=== PATIENT | female | born 1945 | race African-American/Black ===

== ENCOUNTER 2017-02-22 17:28 | Emergency (ER) | payer BC, OTHER ==
[~2017-02-22] VITALS: Ht 160 cm; Wt 81.6 kg
[2017-02-22 17:29] VITALS: BP_SYST 131
[2017-02-22 19:04] LABS: BASOPHILS % (AUTO) 0.5 % (0.0-2.0); EOSINOPHILS # (AUTO) 0.1 K/uL (0.0-0.4); EOSINOPHILS % (AUTO) 1.4 % (0.0-4.0); HEMOGLOBIN 12.3 g/dL (12.0-16.0); LYMPHOCYTES # (AUTO) 2.8 K/uL (1.0-5.5); LYMPHOCYTES % (AUTO) 45.5 % (20.5-51.5); MEAN CORPUSCULAR HEMOGLOBIN 31 pg (27-31); MEAN CORPUSCULAR HGB CONC 34 % (32-36); MEAN CORPUSCULAR VOLUME 89 fL (79.0-98.0); MONOCYTES # (AUTO) 0.4 K/uL (0.0-1.0); MONOCYTES % (AUTO) 7.2 % (1.7-9.3); NEUTROPHILS # (AUTO) 2.8 K/uL (1.8-7.7); NEUTROPHILS % (AUTO) 45.4 % (40.0-70.0); PLATELET COUNT (AUTO) 277 K/uL (130-430); RED BLOOD CELL COUNT(AUTO) 4.03 MIL/uL (4.2-6.2); RED CELL DISTRIBUTION WIDTH 13.9 % (9.0-15.0); WHITE BLOOD COUNT (AUTO) 6.1 K/uL (4.8-10.8)
[2017-02-22 19:14] LABS: CALCIUM 8.8 mg/dL (8.4-11.0); CREATININE 1.12 mg/dL (0.55-1.30); POTASSIUM 3.8 mmol/L (3.5-5.1)
[2017-02-22 19:18] LABS: ALBUMIN 3.5 g/dL (3.4-4.8); TOTAL BILIRUBIN 0.2 mg/dL (0.0-1.0); TOTAL PROTEIN, SERUM 7.5 g/dL (6.4-8.3)
[2017-02-22 19:21] LABS: BILIRUBIN,URINE NEGATIVE (NEGATIVE); BLOOD, URINE NEGATIVE (NEGATIVE); CLARITY/URINE CLEAR (CLEAR); COLOR,URINE YELLOW (YELLOW); GLUCOSE,URINE 3+ (NEGATIVE); KETONES,URINE NEGATIVE (NEGATIVE); LEUKOCYTE ESTERASE ,URINE NEGATIVE (NEGATIVE); NITRITE, URINE NEGATIVE (NEGATIVE); PH,URINE 5.5 (5.0-8.0); PROTEIN URINE NEGATIVE (NEGATIVE); UROBILINOGEN,URINE 0.2 (0.2-1.0)
[2017-02-22 19:29] LABS: BACTERIA,URINE RARE /HPF (None Seen); MUCUS,URINE None Seen /LPF (None Seen); RBC,URINE NONE SEEN /HPF (0-3)
[2017-02-22] MEDS: NACL 0.9% 1,000 ML IV ONE (20:40)
[2017-02-22] MEDS ORDERED: LORazepam 2 MG/ML VIAL (FOR ER USE) ONE (20:43)
[2017-02-22] MEDS: LORazepam 2 MG/ML VIAL IVP ONE (20:51)
[2017-02-23 00:35] VITALS: BP_SYST 124
== END 2017-02-23 00:35 | disposition home or self-care (01) ==
LOC: SED 17:28
DX: E86.0 Dehydration (principal); F41.9 Anxiety disorder, unspecified; R41.82 Altered mental status, unspecified
CPT/HCPCS: 36415; 70450; 71010; 80053; 81000; 82962; 83605; 83690; 84484; 85025; 87040; 93005; 96360; 99285; G0482; J2060; J7030

== ENCOUNTER 2020-05-20 22:59 | Emergency (ER) | payer OTHER, BC ==
[~2020-05-20] VITALS: Ht 160 cm; Wt 81.6 kg
[2020-05-20 23:00] VITALS: BP_SYST 154
[2020-05-21 00:57] LABS: BASOPHILS % (AUTO) 0.2 % (0.0-2.0); EOSINOPHILS # (AUTO) 0.1 K/uL (0.0-0.4); EOSINOPHILS % (AUTO) 1.2 % (0.0-4.0); HEMATOCRIT 36.8 % (36-48); HEMOGLOBIN 12.1 g/dL (12.0-16.0); LYMPHOCYTES # (AUTO) 2.8 K/uL (1.0-5.5); LYMPHOCYTES % (AUTO) 44.1 % (20.5-51.5); MEAN CORPUSCULAR HEMOGLOBIN 29 pg (27-31); MEAN CORPUSCULAR HGB CONC 33 % (32-36); MEAN CORPUSCULAR VOLUME 89 fL (79.0-98.0); MONOCYTES # (AUTO) 0.5 K/uL (0.0-1.0); MONOCYTES % (AUTO) 7.8 % (1.7-9.3); NEUTROPHILS # (AUTO) 2.9 K/uL (1.8-7.7); NEUTROPHILS % (AUTO) 46.7 % (40.0-70.0); PLATELET COUNT (AUTO) 272 K/uL (130-430); RED BLOOD CELL COUNT(AUTO) 4.14 MIL/uL (4.2-6.2); RED CELL DISTRIBUTION WIDTH 14.1 % (9.0-15.0); WHITE BLOOD COUNT (AUTO) 6.3 K/uL (4.8-10.8)
[2020-05-21 01:09] LABS: ANION GAP 10 (5-15); CALCIUM 9.4 mg/dL (8.4-11.0); CHLORIDE 97 mmol/L (98-107); POTASSIUM 4.1 mmol/L (3.5-5.1); SODIUM SERUM 131 mmol/L (136-145); UREA NITROGEN, BLOOD 21 mg/dL (8-21)
[2020-05-21 01:17] LABS: ALANINE AMINOTRANSFERASE 32 U/L (12-78); ALBUMIN 3.1 g/dL (3.4-4.8); ASPARTATE AMINOTRANSFERASE 13 U/L (10-37); TOTAL BILIRUBIN 0.3 mg/dL (0.0-1.0)
[2020-05-21 01:20] LABS: GLUCOSE 446 mg/dL (70-99)
[2020-05-21] MEDS ORDERED: INSULIN REGULAR, HUMAN 10 UNITS/0.1 ML INJ IVP ONE (01:30)
[2020-05-21] MEDS: NACL 0.9% 1,000 ML IV ONE ×2 (01:46→02:40)
[2020-05-21 02:13] LABS: BILIRUBIN,URINE NEGATIVE (NEGATIVE); BLOOD, URINE NEGATIVE (NEGATIVE); CLARITY/URINE CLEAR (CLEAR); COLOR,URINE YELLOW (YELLOW); GLUCOSE,URINE 3+ (NEGATIVE); KETONES,URINE NEGATIVE (NEGATIVE); LEUKOCYTE ESTERASE ,URINE NEGATIVE (NEGATIVE); NITRITE, URINE NEGATIVE (NEGATIVE); PH,URINE 5.5 (5.0-8.0); PROTEIN URINE NEGATIVE (NEGATIVE); UROBILINOGEN,URINE 0.2 (0.2-1.0)
[2020-05-21] MEDS ORDERED: INSULIN REGULAR, HUMAN 10 UNITS/0.1 ML INJ SUBCUT ONE (02:45)
[2020-05-21 05:13] VITALS: BP_SYST 139
== END 2020-05-21 05:13 | disposition home or self-care (01) ==
LOC: SED 22:59
DX: I11.0 Hypertensive heart disease with heart failure (principal); I50.9 Heart failure, unspecified; R42 Dizziness and giddiness; R73.9 Hyperglycemia, unspecified
CPT/HCPCS: 36415; 36600; 70450; 71045; 80053; 81003; 82009; 82803; 82962; 83880; 84484; 85025; 93005; 96372; 99285; J7030; J1815

== ENCOUNTER 2021-05-13 19:45 | Emergency (ER) | payer OTHER, BC ==
[~2021-05-13] VITALS: Ht 160 cm; Wt 86.2 kg
[2021-05-13 19:50] VITALS: BP_SYST 137
[2021-05-13] MEDS ORDERED: ACETAMINOPHEN 500 MG TABLET PO ONE (23:15)
[2021-05-13 23:41] LABS: BASOPHILS % (AUTO) 0.3 % (0.0-2.0); EOSINOPHILS # (AUTO) 0.1 K/uL (0.0-0.4); EOSINOPHILS % (AUTO) 1.7 % (0.0-4.0); HEMATOCRIT 34.6 % (36-48); HEMOGLOBIN 11.8 g/dL (12.0-16.0); LYMPHOCYTES # (AUTO) 2.9 K/uL (1.0-5.5); LYMPHOCYTES % (AUTO) 45.8 % (20.5-51.5); MEAN CORPUSCULAR HEMOGLOBIN 30 pg (27-31); MEAN CORPUSCULAR HGB CONC 34 % (32-36); MEAN CORPUSCULAR VOLUME 89 fL (79.0-98.0); MONOCYTES # (AUTO) 0.5 K/uL (0.0-1.0); MONOCYTES % (AUTO) 8.6 % (1.7-9.3); NEUTROPHILS # (AUTO) 2.7 K/uL (1.8-7.7); NEUTROPHILS % (AUTO) 43.6 % (40.0-70.0); PLATELET COUNT (AUTO) 274 K/uL (130-430); RED BLOOD CELL COUNT(AUTO) 3.91 MIL/uL (4.2-6.2); RED CELL DISTRIBUTION WIDTH 14.2 % (9.0-15.0); WHITE BLOOD COUNT (AUTO) 6.3 K/uL (4.8-10.8)
[2021-05-13 23:48] LABS: ANION GAP 8 (5-15); CALCIUM 8.8 mg/dL (8.4-11.0); CHLORIDE 109 mmol/L (98-107); CREATININE 1.01 mg/dL (0.55-1.30); GLUCOSE 185 mg/dL (70-99); POTASSIUM 3.9 mmol/L (3.5-5.1); SODIUM SERUM 144 mmol/L (136-145); UREA NITROGEN, BLOOD 18 mg/dL (8-21)
[2021-05-14] MEDS ORDERED: NAPR-686 PO (00:22)
[2021-05-14] MEDS ORDERED: ACET12.55 PO ×2 (00:22)
[2021-05-14 01:00] VITALS: BP_SYST 126
[2021-05-14] MEDS ORDERED: ACET1TAB23 PO (13:01)
== END 2021-05-14 01:00 | disposition home or self-care (01) ==
LOC: SED 19:45
DX: S06.0X0A Concussion without loss of consciousness, initial encounter (principal); G44.309 Post-traumatic headache, unspecified, not intractable; I11.0 Hypertensive heart disease with heart failure; I50.9 Heart failure, unspecified; Z79.899 Other long term (current) drug therapy; V49.69XA Unspecified car occupant injured in collision with other motor vehicles in traffic accident, initial encounter; Y93.89 Activity, other specified; Y92.89 Other specified places as the place of occurrence of the external cause; Y99.8 Other external cause status
CPT/HCPCS: 36415; 70450-TC; 76376; 80048; 85025; 99284

== ENCOUNTER 2021-08-10 04:42 | Inpatient (IN) | payer BC, OTHER, SELFPAY ==
[~2021-08-10] VITALS: Ht 160 cm; Wt 85.7 kg
[2021-08-10] VITALS (7 sets, daily range): BP systolic 101–156
[~2021-08-10 04:42] MED LIST: ACET1TAB23 PO; NAPR-686 PO
--- NOTE | 2021-08-10 04:55 | NUR ---
Placed in room 5 . Placed on monitoring manager, blood pressure machine and pulse oximeter. To gown for exam. Side rails up. Report given to Alok MAIER.
--- NOTE | 2021-08-10 05:03 | NUR ---
PT ARRIVED TO ER WITH COMPLAINTS OF DIZZYNESS AND FEELING OF PASSING OUT SINCE 08/09/21 MORNING. PT STATES SHE HAS BEEN PROGRESSIVELY GETTING WORSE. -N/V. A&OX4. PT IS LAYING DOWN IN BED RESTING NOW
--- NOTE | 2021-08-10 05:25 | NUR ---
Patient transported to radiology via GURNEY, accompanied by PHIL.
--- NOTE | 2021-08-10 06:28 | NUR ---
ATTEMPTED TO START IV ON PT, PT WAS GETTING REAL ANXIOUS. AWAITING BLOOD DRAW BY SYSTEMS ARCHITECT
[2021-08-10 07:00] LABS: BILIRUBIN,URINE NEGATIVE (NEGATIVE); BLOOD, URINE NEGATIVE (NEGATIVE); CLARITY/URINE CLEAR (CLEAR); COLOR,URINE YELLOW (YELLOW); GLUCOSE,URINE 2+ (NEGATIVE); KETONES,URINE NEGATIVE (NEGATIVE); LEUKOCYTE ESTERASE ,URINE NEGATIVE (NEGATIVE); NITRITE, URINE NEGATIVE (NEGATIVE); PROTEIN URINE NEGATIVE (NEGATIVE); UROBILINOGEN,URINE 0.2 (0.2-1.0)
--- NOTE | 2021-08-10 07:06 | NUR ---
care transferred to bobby guillaume
[2021-08-10 07:12] LABS: BASOPHILS % (AUTO) 0.3 % (0.0-2.0); EOSINOPHILS # (AUTO) 0.1 K/uL (0.0-0.4); EOSINOPHILS % (AUTO) 1.2 % (0.0-4.0); HEMATOCRIT 37.8 % (36-48); HEMOGLOBIN 12.6 g/dL (12.0-16.0); LYMPHOCYTES # (AUTO) 2.5 K/uL (1.0-5.5); LYMPHOCYTES % (AUTO) 43.4 % (20.5-51.5); MEAN CORPUSCULAR HEMOGLOBIN 29 pg (27-31); MEAN CORPUSCULAR HGB CONC 33 % (32-36); MEAN CORPUSCULAR VOLUME 88 fL (79.0-98.0); MONOCYTES # (AUTO) 0.4 K/uL (0.0-1.0); MONOCYTES % (AUTO) 7.5 % (1.7-9.3); NEUTROPHILS # (AUTO) 2.8 K/uL (1.8-7.7); NEUTROPHILS % (AUTO) 47.6 % (40.0-70.0); PLATELET COUNT (AUTO) 272 K/uL (130-430); RED BLOOD CELL COUNT(AUTO) 4.29 MIL/uL (4.2-6.2); RED CELL DISTRIBUTION WIDTH 14.2 % (9.0-15.0); WHITE BLOOD COUNT (AUTO) 5.8 K/uL (4.8-10.8)
--- NOTE | 2021-08-10 07:20 | NUR ---
RECEIVED AND IN ROOM, PT CALM, ALERT, RESP UNLABORED, DENIES CP/SOB. SKIN WARM AND DRY.
[2021-08-10 07:26] LABS: ANION GAP 7 (5-15); CALCIUM 9.3 mg/dL (8.4-11.0); CHLORIDE 103 mmol/L (98-107); CREATININE 0.87 mg/dL (0.55-1.30); GLUCOSE 253 mg/dL (70-99); POTASSIUM 3.6 mmol/L (3.5-5.1); SODIUM SERUM 138 mmol/L (136-145); UREA NITROGEN, BLOOD 11 mg/dL (8-21)
[2021-08-10 07:29] LABS: INR 1.1 (0.8-1.2); PROTHROMBIN TIME 11.3 SECS (9.5-12.5)
[2021-08-10 07:32] LABS: ALANINE AMINOTRANSFERASE 29 U/L (12-78); ALBUMIN 3.5 g/dL (3.4-4.8); ASPARTATE AMINOTRANSFERASE 15 U/L (10-37); TOTAL BILIRUBIN 0.6 mg/dL (0.0-1.0)
--- NOTE | 2021-08-10 07:35 | NUR ---
VSS, SR ON MONITOR NO ECTOPY,
--- NOTE | 2021-08-10 07:43 | NUR ---
DR CABRERA IN TO ASSESS
--- NOTE | 2021-08-10 07:55 | NUR ---
ADMIT UNDER JANDIAL DX SYNCOPE, TELE OBS
[2021-08-10 08:09] LABS: BACTERIA,URINE RARE /HPF (None Seen); MUCUS,URINE 1+ /LPF (None Seen); RBC,URINE 0-3 /HPF (0-3); WBC,URINE 0-3 /HPF (0-3)
[2021-08-10] MEDS ORDERED: LOSA25TA3 PO (08:10)
[2021-08-10] MEDS ORDERED: NIFE-55 PO (08:10)
[2021-08-10] MEDS ORDERED: GLIP10TA11 PO (08:10)
--- NOTE | 2021-08-10 09:14 | NUR ---
SITTING UP EATING BREAKFAST
--- NOTE | 2021-08-10 09:50 | NUR ---
2D ECHO COMPLETED, DR IRBY IN TO ASSESS
--- NOTE | 2021-08-10 10:11 | NUR ---
DR BOOKER AT BEDSIDE
--- NOTE | 2021-08-10 10:11 | NUR ---
Patient will be admitted to care of ADE. Admitted to TELE unit. Will go to room 102. Belongings list completed. Complete and up to date summary report printed. SBAR report to be given at bedside with opportunity for questions.
--- NOTE | 2021-08-10 10:30 | NUR ---
PATIENT ADMITTED TO TELEMETRY, CAME FROM ER IN [facility], RECEIVED REPORT AT BEDSIDE, PATIENT IV INTACT PATENT IN LEFT HAND 22G, PATIENT IS AMBULATORY WITH STAND BY ASSIST, VOICES SHE FEELS LIGHT HEADED, NO KNOWN ALLERGIES, STATES SHE IS B[employer] SO DOES NOT WANT TO RECEIVE BLOOD AND PROVIDED ADVANCE DIRECTIVE AND COPY WAS PLACED IN CHART, ON TELE NSR, SKIN INTACT, BELONGINGS LIST FILLED OUT, BED IN LOWEST LOCKED POSITION, CALL LIGHT WITHIN REACH, SAFETY MEASURES IN PLACE, WILL CONTINUE TO MONITOR.
--- NOTE | 2021-08-10 10:37 | NUR ---
CONSULT NEUROLOGY NEAR SYNCOPE MEDARDO YAO SENT A TEXT MESSAGE TO DR BRICE
[2021-08-10] MEDS ORDERED: DEXTROSE 50% JECT 50 ML DISP.SYRIN IVP PRN (10:45)
[2021-08-10] MEDS: INSULIN REGULAR, HUMAN 100 UNITS/ML, 10 ML VIAL (humuLIN R) SUBCUT PRN ×3 (12:33→20:48)
[2021-08-10] MEDS ORDERED: XALEYE OP (17:11)
--- NOTE | 2021-08-10 17:14 | NUR ---
CALLED DR HAYES FOR DR BOOKER TO NOTIFY THAT PATIENT REPORTED SHE USES LATANAPROST 0.005%, 1 DROP BOTHEYES EVERY NIGHT FOR GLAUCOMA, AWAITING CALL BACK.
--- NOTE | 2021-08-10 21:00 | NUR ---
Patient denies any pain with intermittent dizziness safety/fall precaution instructed
--- NOTE | 2021-08-11 02:33 | NUR ---
PATIENT RESTING: Patient resting quietly. No acute distress noted. telemetry NSR
[2021-08-11 07:49] LABS: ALANINE AMINOTRANSFERASE 30 U/L (12-78); ALBUMIN 3.3 g/dL (3.4-4.8); ANION GAP 7 (5-15); ASPARTATE AMINOTRANSFERASE 16 U/L (10-37); CHLORIDE 105 mmol/L (98-107); CREATININE 0.95 mg/dL (0.55-1.30); GLUCOSE 177 mg/dL (70-99); POTASSIUM 3.8 mmol/L (3.5-5.1); SODIUM SERUM 140 mmol/L (136-145); THYROID STIMULATING HORMONE 1.07 uIu/mL (0.36-3.74); TOTAL BILIRUBIN 0.6 mg/dL (0.0-1.0); UREA NITROGEN, BLOOD 17 mg/dL (8-21)
[2021-08-11 08:00] VITALS: BP_SYST 133
[2021-08-11] MEDS: LOSARTAN POTASSIUM 25 MG TABLET PO SCH (08:20)
[2021-08-11 09:19] LABS: CHOLESTEROL 177 mg/dL (<200); HDL CHOLESTEROL 42 mg/dL (>55); LDL CHOLESTEROL 115 mg/dL (<100); TRIGLYCERIDES 123 mg/dL (30-150)
[2021-08-11 12:00] VITALS: BP_SYST 140
[2021-08-11] MEDS: INSULIN REGULAR, HUMAN 100 UNITS/ML, 10 ML VIAL (humuLIN R) SUBCUT PRN ×3 (12:05→22:16)
--- NOTE | 2021-08-11 13:26 | NUR ---
SPOKE WITH MRI, TOLD THAT WHEN HE WENT TO THE ROOM TO GIVE THE PATIENT HER MRI SHE WAS HAVING HER EEG PERFORMED AND IT WOULD NOT BE FINISHED FOR 45 MINUTES SO MRI OUT OF SLOTS TO TAKE HER TODAY AND STATED THAT SHE CAN NOT BE TAKEN UNTIL FIRST THING TOMORROW MORNING, CALLED AND NOTIFIED DR BOOKER, HE STATED THERE IS NOTHING WE CAN DO THUS WE WILL HAVE HER PERFORM THE MRI TOMORROW MORNING THEN DISCUSS POSSIBLE DISCHARGE.
--- NOTE | 2021-08-11 14:00 | NUR ---
CALLED FROM MRI, THEY STATED THAT THEY WENT IN TO [employer] PATIENT FOR MRI BUT PATIENT WAS HAVING THE EEG PERFORMED AND IT WOULD TAKE 45 MINUTES, MRI STATED THEY DO NOT HAVE ANY MORE TIME SLOTS FOR THE PATIENT TODAY SO THEY HAD TO SCHEDULE HER FOR FIRST THING TOMORROW MORNING, NOTIFIED DR BOOKER, ADE STATED THAT THERE IS NOTHING WE CAN DO AND SO WE WILL HAVE THE MRI DONE IN THE MORNING. NO NEW ORDERS. Addendum: 08/11/21 at 1552 by Sweta Pang RN DISREGARD, REPEAT NOTE.
[2021-08-11 16:00] VITALS: BP_SYST 145
--- NOTE | 2021-08-11 17:10 | NUR ---
Dietitian Recommendations * CCHO low carb-45 gm, cardiac diet * Nutrition Consult for DM/heart-healthy MNT prior to D/C [facility]E [facility] Please refer to Nutrition Assessment for details. Addendum: 08/11/21 at [address] Amended: Links added.
--- NOTE | 2021-08-11 18:44 | NUR ---
PATIENT IN BED, NO S/S OF DISTRESS, MRI SCHEDULED FOR AM, NO MAJOR CHANGES DURING SHIFT, NO NEEDS AT THIS TIME, WILL ENDORSE CONTINUATION OF CARE TO CHEF DE FROID
[2021-08-11 19:40] VITALS: BP_SYST 151
[2021-08-11] MEDS ORDERED: LATANOPROST 2.5 ML DROPS (XALATAN) BOTH EYES SCH (21:00)
--- NOTE | 2021-08-11 21:07 | NUR ---
Ambulate with steady gait no dizziness no headache.
[2021-08-12 00:24] VITALS: BP_SYST 146
--- NOTE | 2021-08-12 00:25 | NUR ---
Awake watching TV denies any pain
--- NOTE | 2021-08-12 03:02 | NUR ---
PATIENT RESTING: Patient resting quietly. No acute distress noted. Telemetry NSR
[2021-08-12] MEDS: INSULIN REGULAR, HUMAN 100 UNITS/ML, 10 ML VIAL (humuLIN R) SUBCUT PRN (06:11)
[2021-08-12] MEDS: LOSARTAN POTASSIUM 25 MG TABLET PO SCH (10:43)
[2021-08-12 12:09] VITALS: BP_SYST 131
== END 2021-08-12 14:10 | disposition home health service (06) | DRG 149 ==
LOC: SED 04:42 → STU 08:04 → OBSVTOIN 13:50
PROVIDERS: ADMIT Internal Medicine Hospice and Palliative Medicine; ATTEND Internal Medicine Hospice and Palliative Medicine
PROC: 4A10X4Z Monitoring of Central Nervous Electrical Activity, External Approach (ICD-10-PCS; principal; 2021-08-11)
DX: R42 Dizziness and giddiness (principal); E78.5 Hyperlipidemia, unspecified; E11.9 Type 2 diabetes mellitus without complications; I70.90 Unspecified atherosclerosis; I11.0 Hypertensive heart disease with heart failure; I50.9 Heart failure, unspecified; Z20.822 Contact with and (suspected) exposure to COVID-19; Z79.82 Long term (current) use of aspirin; Z79.84 Long term (current) use of oral hypoglycemic drugs; Z79.899 Other long term (current) drug therapy; Z82.5 Family history of asthma and other chronic lower respiratory diseases; Z83.3 Family history of diabetes mellitus; Z87.891 Personal history of nicotine dependence; Z90.49 Acquired absence of other specified parts of digestive tract; Z98.891 History of uterine scar from previous surgery
CPT/HCPCS: 36415; 70450-TC; 70551; 71045; 76376; 80053; 80061; 81000; 82962; 83880; 84443; 84484; 85025; 85610-TC; 85730-TC; 93005; 93306; 93880; 95816; 99285; G0378

== ENCOUNTER 2022-11-04 03:08 | Emergency (ER) | payer BC, OTHER ==
[~2022-11-04] VITALS: Ht 160 cm; Wt 83.9 kg
[~2022-11-04 03:08] MED LIST changes: -ACET1TAB23 PO; +GLIP10TA11 PO; +LOSA25TA3 PO; +NIFE-55 PO; +XALEYE OP
[2022-11-04 03:22] VITALS: BP_SYST 145
--- NOTE | 2022-11-04 03:26 | NUR ---
ER Dr. CABRERA at bedside examining patient.
--- NOTE | 2022-11-04 03:26 | NUR ---
BIB [facility] HOME C/O WAKING UP FEELING LIKE SINKING & LEFT SIDED FACIAL NUMBNESS. PMH: HTN, HLD, DM. ALLERGIC TO CITRUS FRUITS.
--- NOTE | 2022-11-04 03:27 | NUR ---
Placed in room 4 . Placed on orthodontic laboratory technician, blood pressure machine and pulse oximeter. To gown for exam. Side rails up. Report given to DARRION GASCA.
--- NOTE | 2022-11-04 03:37 | NUR ---
Bedside Bloodsugar check 338. made aware.
--- NOTE | 2022-11-04 04:00 | NUR ---
The pt is received in ED 4. AAo x4, VSS, RR even and unlabored. The pt states last known well at 212911/03/2022. She states woke up at 0530 feeling like "she was sinking". Also states " I was not my self, my balance was off". Now c/o L facial numbness. Denies other symptoms at this time. Spouse at bedside. Safety measures in place.
[2022-11-04] MEDS ORDERED: NS 500 ML IV ONE (04:15)
[2022-11-04 04:26] LABS: BASOPHILS % (AUTO) 0.4 % (0.0-2.0); EOSINOPHILS # (AUTO) 0.1 K/uL (0.0-0.4); EOSINOPHILS % (AUTO) 1.8 % (0.0-4.0); HEMATOCRIT 37.6 % (36-48); HEMOGLOBIN 12.6 g/dL (12.0-16.0); LYMPHOCYTES # (AUTO) 2.9 K/uL (1.0-5.5); LYMPHOCYTES % (AUTO) 44.5 % (20.5-51.5); MEAN CORPUSCULAR HEMOGLOBIN 29 pg (27-31); MEAN CORPUSCULAR HGB CONC 34 % (32-36); MEAN CORPUSCULAR VOLUME 87 fL (79.0-98.0); MONOCYTES # (AUTO) 0.5 K/uL (0.0-1.0); MONOCYTES % (AUTO) 7.8 % (1.7-9.3); NEUTROPHILS % (AUTO) 45.5 % (40.0-70.0); PLATELET COUNT (AUTO) 238 K/uL (130-430); RED BLOOD CELL COUNT(AUTO) 4.34 MIL/uL (4.2-6.2); RED CELL DISTRIBUTION WIDTH 14.3 % (9.0-15.0); WHITE BLOOD COUNT (AUTO) 6.6 K/uL (4.8-10.8)
[2022-11-04 04:35] LABS: ANION GAP 8 (5-15); CALCIUM 9.3 mg/dL (8.4-11.0); CHLORIDE 102 mmol/L (98-107); CREATININE 0.82 mg/dL (0.55-1.30); GLUCOSE 332 mg/dL (70-99); UREA NITROGEN, BLOOD 16 mg/dL (8-21)
[2022-11-04 04:42] LABS: ALANINE AMINOTRANSFERASE 31 U/L (12-78); ALBUMIN 3.4 g/dL (3.4-4.8); ASPARTATE AMINOTRANSFERASE 9 U/L (10-37); TOTAL BILIRUBIN 0.4 mg/dL (0.0-1.0)
[2022-11-04 04:57] LABS: BILIRUBIN,URINE NEGATIVE (NEGATIVE); BLOOD, URINE NEGATIVE (NEGATIVE); CLARITY/URINE CLEAR (CLEAR); COLOR,URINE YELLOW (YELLOW); GLUCOSE,URINE 3+ (NEGATIVE); KETONES,URINE NEGATIVE (NEGATIVE); LEUKOCYTE ESTERASE ,URINE NEGATIVE (NEGATIVE); NITRITE, URINE NEGATIVE (NEGATIVE); PROTEIN URINE NEGATIVE (NEGATIVE); UROBILINOGEN,URINE 0.2 (0.2-1.0)
[2022-11-04 05:26] LABS: BACTERIA,URINE FEW /HPF (None Seen); MUCUS,URINE None Seen /LPF (None Seen); RBC,URINE 0-3 /HPF (0-3); WBC,URINE 0-3 /HPF (0-3)
[2022-11-04 05:38] VITALS: BP_SYST 150
--- NOTE | 2022-11-04 05:41 | NUR ---
Patient given written and verbal discharge instructions and verbalizes understanding. ER MD discussed with patient the results and treatment provided. Patient in stable condition. ID arm band removed. IV catheter removed intact and dressing applied, no active bleeding. Opportunity for questions provided and answered. Denies questions, coments, and concerns at this time. Ambulates steadily off the ED with spouse
== END 2022-11-04 05:41 | disposition home or self-care (01) ==
LOC: SED 03:08
DX: R73.9 Hyperglycemia, unspecified (principal); I11.0 Hypertensive heart disease with heart failure; I50.9 Heart failure, unspecified; R42 Dizziness and giddiness; Z91.018 Allergy to other foods; Z79.899 Other long term (current) drug therapy
CPT/HCPCS: 99285; 96360; 70450; 71045; 80053; 81000; 82962; 85025; 84484; 36415; 93005; 76376; 80048; J7030

== ENCOUNTER 2022-12-13 12:13 | Emergency (ER) | payer BC, OTHER ==
[~2022-12-13] VITALS: Ht 160 cm; Wt 72.6 kg
[2022-12-13 12:14] VITALS: BP_SYST 174
--- NOTE | 2022-12-13 12:14 | NUR ---
BROUGHT BACK TO BED #5 AND TRIAGED. REPORT GIVEN TO RAJINDER
--- NOTE | 2022-12-13 12:30 | NUR ---
# 20 gauge angiocath placed to RAC. Use of asceptic technique. Opsite placed over site. Blood return noted. Blood for lab drawn from site. Flushed with 10 cc of normal saline. No evidence of infiltration noted. Patient tolerated well.
[2022-12-13 12:46] LABS: BASOPHILS # (AUTO) 0.1 K/uL (0.0-0.2); BASOPHILS % (AUTO) 0.9 % (0.0-2.0); EOSINOPHILS # (AUTO) 0.2 K/uL (0.0-0.4); HEMATOCRIT 35.4 % (36-48); LYMPHOCYTES # (AUTO) 2.7 K/uL (1.0-5.5); LYMPHOCYTES % (AUTO) 40.4 % (20.5-51.5); MEAN CORPUSCULAR HEMOGLOBIN 30 pg (27-31); MEAN CORPUSCULAR HGB CONC 34 % (32-36); MEAN CORPUSCULAR VOLUME 88 fL (79.0-98.0); MONOCYTES # (AUTO) 0.5 K/uL (0.0-1.0); MONOCYTES % (AUTO) 7.8 % (1.7-9.3); NEUTROPHILS # (AUTO) 3.2 K/uL (1.8-7.7); NEUTROPHILS % (AUTO) 47.9 % (40.0-70.0); PLATELET COUNT (AUTO) 283 K/uL (130-430); RED BLOOD CELL COUNT(AUTO) 4.04 MIL/uL (4.2-6.2); RED CELL DISTRIBUTION WIDTH 14.8 % (9.0-15.0); WHITE BLOOD COUNT (AUTO) 6.7 K/uL (4.8-10.8)
[2022-12-13] MEDS ORDERED: KETOROLAC TROMETHAMINE 30 MG VIAL IVP ONE (13:00)
[2022-12-13 13:02] LABS: ALANINE AMINOTRANSFERASE 26 U/L (12-78); ALBUMIN 3.2 g/dL (3.4-4.8); ANION GAP 4 (5-15); ASPARTATE AMINOTRANSFERASE 14 U/L (10-37); CHLORIDE 98 mmol/L (98-107); CREATININE 1.03 mg/dL (0.55-1.30); GLUCOSE 304 mg/dL (70-99); TOTAL BILIRUBIN 0.4 mg/dL (0.0-1.0); UREA NITROGEN, BLOOD 14 mg/dL (8-21)
--- NOTE | 2022-12-13 13:25 | NUR ---
MEDICATED ORDERED, SON AT BEDSIDE.
[2022-12-13] MEDS ORDERED: IBUP-1969 PO (14:11)
--- NOTE | 2022-12-13 14:22 | NUR ---
Patient given written and verbal discharge instructions and verbalizes understanding. ER MD discussed with patient the results and treatment provided. Patient in stable condition. ID arm band removed. IV catheter removed intact and dressing applied, no active bleeding. Rx of 600mg ibuprofen given. Patient educated on pain management and to follow up with PMD. Pain Scale 5/10. Opportunity for questions provided and answered. Medication side effect fact sheet provided. Patient discharged home with her son. Patient stable.
--- NOTE | 2022-12-13 16:02 | NUR ---
Patient brought in by son from home. Chief Complaint: Right side chest pain. Patient states "02/14, improving since arrival". Ausciltation of lung sounds were clear. Patient in upright position. Edema on ankles present, non pitting. Patient awaker, alert and orietned x3 with son at bedside. Addendum: 12/13/22 at 1605 by TILA intake note 1215pm.
[2022-12-13 16:07] VITALS: BP_SYST 158
== END 2022-12-13 16:02 | disposition home or self-care (01) ==
LOC: SED 12:13
DX: R07.89 Other chest pain (principal); I10 Essential (primary) hypertension; Z79.899 Other long term (current) drug therapy
CPT/HCPCS: 99285; 96374; 71045; 80053; 83880; 85025; 84484; 36415; 93005; J1885

== ENCOUNTER 2023-02-18 15:31 | Inpatient (IN) | payer BC, OTHER ==
[~2023-02-18] VITALS: Ht 160 cm; Wt 86.2 kg
[~2023-02-18 15:31] MED LIST changes: +IBUP-1969 PO
[2023-02-18 15:45] VITALS: BP_SYST 153
[2023-02-18 17:15] LABS: BASOPHILS % (AUTO) 0.4 % (0.0-2.0); EOSINOPHILS # (AUTO) 0.3 K/uL (0.0-0.4); HEMOGLOBIN 12.7 g/dL (12.0-16.0); LYMPHOCYTES # (AUTO) 2.8 K/uL (1.0-5.5); LYMPHOCYTES % (AUTO) 44.5 % (20.5-51.5); MEAN CORPUSCULAR HEMOGLOBIN 29 pg (27-31); MEAN CORPUSCULAR HGB CONC 34 % (32-36); MEAN CORPUSCULAR VOLUME 87 fL (79.0-98.0); MONOCYTES # (AUTO) 0.5 K/uL (0.0-1.0); MONOCYTES % (AUTO) 7.5 % (1.7-9.3); NEUTROPHILS # (AUTO) 2.7 K/uL (1.8-7.7); NEUTROPHILS % (AUTO) 43.6 % (40.0-70.0); PLATELET COUNT (AUTO) 273 K/uL (130-430); RED CELL DISTRIBUTION WIDTH 14.1 % (9.0-15.0); WHITE BLOOD COUNT (AUTO) 6.3 K/uL (4.8-10.8)
[2023-02-18 17:18] LABS: ANION GAP 8 (5-15); CALCIUM 8.8 mg/dL (8.4-11.0); CHLORIDE 103 mmol/L (98-107); CREATININE 1.02 mg/dL (0.55-1.30); GLUCOSE 298 mg/dL (70-99); UREA NITROGEN, BLOOD 15 mg/dL (8-21)
[2023-02-18 17:25] LABS: ALANINE AMINOTRANSFERASE 24 U/L (12-78); ALBUMIN 3.3 g/dL (3.4-4.8); ASPARTATE AMINOTRANSFERASE 11 U/L (10-37); TOTAL BILIRUBIN 0.4 mg/dL (0.0-1.0)
[2023-02-18] MEDS ORDERED: DIPHENHYDRAMINE INJ 50 MG/ML VIAL IVP ONE (18:30)
[2023-02-18] MEDS ORDERED: iohexoL 350 mgI/mL, 100 ML INFUS..BTL IV ONE (18:40)
[2023-02-18] MEDS ORDERED: ASPIRIN 81 MG TABLET(ECOTRIN) PO ONE (21:15)
[2023-02-18] MEDS ORDERED: NITROGLYCERIN 1 INCH (GM) OINT. TP ONE (21:15)
[2023-02-18 22:29] VITALS: BP_SYST 154
[2023-02-19 02:17] VITALS: BP_SYST 159
[2023-02-19 08:00] VITALS: BP_SYST 148
[2023-02-19 08:31] LABS: CHOLESTEROL 176 mg/dL (<200); HDL CHOLESTEROL 49 mg/dL (>55); TRIGLYCERIDES 127 mg/dL (30-150)
[2023-02-19] MEDS ORDERED: LOSARTAN POTASSIUM 25 MG TABLET PO SCH (09:00)
[2023-02-19] MEDS: LOSARTAN POTASSIUM 25 MG TABLET PO SCH (09:39)
[2023-02-19] MEDS: ATORVASTATIN 20 MG TABLET PO SCH (09:40)
[2023-02-19] MEDS: NIFEdipine 30 MG TAB.ER.24 PO SCH (09:40)
[2023-02-19] MEDS: INSULIN LISPRO SLIDING SCALE 100 UNITS/ML, 3 ML VIAL (humaLOG) SUBCUT PRN ×3 (11:54→21:57)
[2023-02-19 12:00] VITALS: BP_SYST 153
[2023-02-19 16:00] VITALS: BP_SYST 117
[2023-02-19] MEDS ORDERED: NALOXONE HCL 0.4 MG/ML AMP (NARCAN) IVP PRN (17:30)
[2023-02-19] MEDS ORDERED: ACETAMINOPHEN 650 MG/20.3 ML UDC GT PRN ×2 (17:30→17:45)
[2023-02-19] MEDS ORDERED: HYDROcodone/ACETAMIN 5-325 MG TAB (NORCO/ VICODIN) PO PRN (17:30)
[2023-02-19 20:00] VITALS: BP_SYST 150
[2023-02-19] MEDS ORDERED: LATANOPROST 2.5 ML DROPS (XALATAN) OP SCH (21:00)
[2023-02-20 00:50] VITALS: BP_SYST 158
[2023-02-20 05:42] LABS: BASOPHILS % (AUTO) 0.3 % (0.0-2.0); EOSINOPHILS # (AUTO) 0.2 K/uL (0.0-0.4); EOSINOPHILS % (AUTO) 4.6 % (0.0-4.0); HEMATOCRIT 37.3 % (36-48); HEMOGLOBIN 12.4 g/dL (12.0-16.0); LYMPHOCYTES # (AUTO) 2.4 K/uL (1.0-5.5); LYMPHOCYTES % (AUTO) 45.6 % (20.5-51.5); MEAN CORPUSCULAR HEMOGLOBIN 29 pg (27-31); MEAN CORPUSCULAR HGB CONC 33 % (32-36); MEAN CORPUSCULAR VOLUME 87 fL (79.0-98.0); MONOCYTES # (AUTO) 0.5 K/uL (0.0-1.0); MONOCYTES % (AUTO) 9.8 % (1.7-9.3); NEUTROPHILS # (AUTO) 2.1 K/uL (1.8-7.7); NEUTROPHILS % (AUTO) 39.7 % (40.0-70.0); PLATELET COUNT (AUTO) 268 K/uL (130-430); RED BLOOD CELL COUNT(AUTO) 4.27 MIL/uL (4.2-6.2); RED CELL DISTRIBUTION WIDTH 14.2 % (9.0-15.0); WHITE BLOOD COUNT (AUTO) 5.2 K/uL (4.8-10.8)
[2023-02-20] MEDS ORDERED: REGADENOSON 0.4 MG/5 ML SYRINGE IVP ONE (08:30)
[2023-02-20] MEDS ORDERED: ENOXAPARIN SODIUM 40 MG/0.4 ML SYRINGE SUBCUT SCH (09:00)
[2023-02-20 09:54] VITALS: BP_SYST 119
[2023-02-20] MEDS: LOSARTAN POTASSIUM 25 MG TABLET PO SCH (09:56)
[2023-02-20] MEDS: ATORVASTATIN 20 MG TABLET PO SCH (09:56)
[2023-02-20] MEDS: NIFEdipine 30 MG TAB.ER.24 PO SCH (09:56)
[2023-02-20] MEDS: INSULIN LISPRO SLIDING SCALE 100 UNITS/ML, 3 ML VIAL (humaLOG) SUBCUT PRN (11:23)
[2023-02-20 11:28] VITALS: BP_SYST 144
[2023-02-20 16:18] VITALS: BP_SYST 129
[2023-02-20 16:20] VITALS: BP_SYST 129
== END 2023-02-20 16:48 | disposition home or self-care (01) | DRG 206 ==
LOC: SED 15:31 → INTOOBSV 21:34 → STU 21:34 → OBSVTOIN 21:34 → STU 22:17 → OBSVTOIN 02-19 06:17
PROVIDERS: ADMIT Specialist; ATTEND Specialist
DX: M94.0 Chondrocostal junction syndrome [Tietze] (principal); I25.10 Atherosclerotic heart disease of native coronary artery without angina pectoris; I35.0 Nonrheumatic aortic (valve) stenosis; F32.A Depression, unspecified; F41.9 Anxiety disorder, unspecified; I34.0 Nonrheumatic mitral (valve) insufficiency; I35.1 Nonrheumatic aortic (valve) insufficiency; Z20.822 Contact with and (suspected) exposure to COVID-19; H40.9 Unspecified glaucoma; E66.01 Morbid (severe) obesity due to excess calories; E11.9 Type 2 diabetes mellitus without complications; I11.0 Hypertensive heart disease with heart failure; I50.9 Heart failure, unspecified; R07.89 Other chest pain; Z68.33 Body mass index [BMI] 33.0-33.9, adult; Z79.82 Long term (current) use of aspirin; Z79.84 Long term (current) use of oral hypoglycemic drugs; Z79.899 Other long term (current) drug therapy; Z82.5 Family history of asthma and other chronic lower respiratory diseases; Z83.3 Family history of diabetes mellitus; Z87.891 Personal history of nicotine dependence; Z91.148 Patient's other noncompliance with medication regimen for other reason; Z90.49 Acquired absence of other specified parts of digestive tract; Z88.8 Allergy status to other drugs, medicaments and biological substances
CPT/HCPCS: 36415; 71045; 71275; 76376; 80053; 80061; 83037; 83880; 84484; 85025; 85379; 93005; 93017; 93306; 99291; A9500; G0378; J1200; J1650; J2785; Q9967